=== PATIENT | male | born 1975 | race Two or more races ===

== ENCOUNTER 2020-08-25 07:06 | Inpatient (IN) | payer MEDICAID ==
[~2020-08-25 07:06] MED LIST: cefOXitin 2 GM Vial ONE
[2020-08-25] MEDS ORDERED: Dextrose 5%-Lactated Ringers 1,000 ML IV SCH (07:30)
[2020-08-25] MEDS ORDERED: cefOXitin 2 GM in Sodium Chloride 0.9% 50 ML IV ONE (07:30)
[2020-08-25] MEDS ORDERED: Acetaminophen 500 MG Tab PO ONE (07:30)
[2020-08-25] MEDS ORDERED: Scopolamine 1.5 MG Transdermal Patch TOP SCH (07:30)
[2020-08-25] MEDS ORDERED: Celecoxib 200 MG Cap PO SCH (07:30)
[2020-08-25] MEDS ORDERED: Ondansetron 4 MG/2 ML SDV ONE (08:49)
[2020-08-25] MEDS ORDERED: Propofol 200 MG/20 ML SDV ONE (08:49)
[2020-08-25] MEDS ORDERED: Dexamethasone 4 MG/ML SDV ONE (08:49)
[2020-08-25] MEDS ORDERED: Midazolam 1 MG/ML 2 ML SDV ONE (08:49)
[2020-08-25] MEDS ORDERED: Glycopyrrolate 0.2 MG/ML 5 ML MDV ONE (08:49)
[2020-08-25] MEDS ORDERED: Lactated Ringers 1,000 ML ONE (08:49)
[2020-08-25] MEDS ORDERED: fentaNYL 250 MCG/5 ML SDV ONE (08:49)
[2020-08-25] MEDS ORDERED: Succinylcholine 200 MG/10 ML MDV ONE (08:49)
[2020-08-25] MEDS ORDERED: Rocuronium 50 MG/5 ML Vial ONE (08:49)
[2020-08-25] MEDS ORDERED: Neostigmine Methylsulfate 1 MG/ML 5 ML Syringe ONE (08:49)
[2020-08-25] MEDS ORDERED: Ketamine 500 MG/5 ML MDV IV SCH (09:30)
[2020-08-25] MEDS ORDERED: Magnesium Sulfate 3 GM in Sodium Chloride 0.9% 100 ML IV SCH (09:30)
[2020-08-25] MEDS ORDERED: Ketamine 50 MG in Sodium Chloride 0.9% 49.5 ML IV SCH (09:30)
[2020-08-25] MEDS ORDERED: SODIUM CHLORIDE 0.9% IV ONE (10:00)
[2020-08-25] MEDS ORDERED: MAGNESIUM SULFATE IV ONE (10:00)
[2020-08-25] MEDS ORDERED: hydrOXYzine HCL 100 MG/2 ML SDV IM ONE (12:30)
[2020-08-25] MEDS ORDERED: Cyclobenzaprine 10 MG Tab PO PRN (12:59)
[2020-08-25] MEDS ORDERED: Ondansetron 4 MG/2 ML SDV IVPUSH PRN (13:00)
[2020-08-25] MEDS ORDERED: diphenhydrAMINE 50 MG/ML SDV IVPUSH PRN (13:00)
[2020-08-25] MEDS ORDERED: Acetaminophen 500 MG Tab PO PRN (13:00)
[2020-08-25] MEDS ORDERED: hydrOXYzine HCL 100 MG/2 ML SDV IM PRN (13:00)
[2020-08-25] MEDS ORDERED: HYDROmorphone 0.5 MG/0.5 ML Syringe IVPUSH PRN (13:00)
[2020-08-25] MEDS ORDERED: HYDROmorphone 1 MG/ML Syringe IV PRN (13:00)
[2020-08-25] MEDS ORDERED: Metoclopramide 10 MG/2 ML SDV IVPUSH PRN (13:00)
[2020-08-25] MEDS ORDERED: Calcium Gluconate 10% 1 GM/10 ML SDV IVPUSH PRN (13:00)
[2020-08-25] MEDS ORDERED: Labetalol 20 MG/4 ML Syringe IVPUSH PRN (13:00)
[2020-08-25] MEDS ORDERED: oxyCODONE 5 MG Tab PO PRN (13:00)
[2020-08-25] MEDS: Dextrose 5%-Lactated Ringers 1,000 ML IV SCH ×2 (13:03→23:29)
[2020-08-25] MEDS ORDERED: MVI, Adult with Vitamin K 10 ML, Thiamine 200 MG, Zinc/Copper/Manganese/Selenium 1 ML i... IV SCH ×4 (16:00)
[2020-08-25] MEDS ORDERED: Pantoprazole 40 MG Vial IVPUSH SCH (16:00)
[2020-08-25] MEDS: cefOXitin 2 GM in Sodium Chloride 0.9% 50 ML IV SCH ×2 (16:02→22:24)
[2020-08-25] MEDS: Acetaminophen 500 MG Tab PO SCH ×2 (16:05→23:28)
--- NOTE | 2020-08-25 16:09 | PCM.EKG ---
#1 Interpretation EKG Date: 08/25/20 Time: 07:37 Rhythm: NSR Rate (Beats/Min): 52 [place]: Normal P-Wave: Present QRS: Wide (NSIVCD) ST-T: Normal QT: Normal MA/PQ Interval: normal Comparison: NA - No Prior EKG
[2020-08-25] MEDS: traMADol 50 MG Tab PO PRN (16:16)
[2020-08-25] MEDS: Heparin Sodium 5,000 Units/ML Vial SUBCUT SCH (19:53)
[2020-08-26] MEDS ORDERED: Iopamidol 612 MG/ML 50 ML SDV PO STA (04:17)
[2020-08-26] MEDS: cefOXitin 2 GM in Sodium Chloride 0.9% 50 ML IV SCH ×3 (04:18→16:21)
[2020-08-26] MEDS: Dextrose 5%-Lactated Ringers 1,000 ML IV SCH (05:41)
[2020-08-26] MEDS ORDERED: Ondansetron 4 MG Tab.DIS PO PRN (06:39)
[2020-08-26] MEDS ORDERED: hydrOXYzine HCl 25 MG Tab PO PRN (06:40)
[2020-08-26] MEDS ORDERED: Dextrose 5%-Lactated Ringers 1,000 ML IV SCH (06:45)
--- NOTE | 2020-08-26 07:13 | PN ---
DATE OF SERVICE: 08/26/2020 SUBJECTIVE: Ozzie is postop day #1 following a sleeve gastrectomy. His upper GI was normal. Vital signs have been stable. Oral intake 960. Urine output 2300. ALEC drain put out 130 mL of a light red drainage. Pain has been controlled per energy protocol. Up, ambulating in the prince. Has no questions or concerns. OBJECTIVE: GENERAL: Ozzie is a pleasant 45-year-old male. He is alert and orientated. VITAL SIGNS: TPR 94.4, 59, 18, blood pressure 109/60. HEENT: Negative. NECK: Supple. HEART: Regular rate and rhythm. LUNGS: Clear. ABDOMEN: Dressings dry and intact. ALEC drain as above. Abdominal binder is on. EXTREMITIES: Without peripheral edema. ASSESSMENT: 1. Laparoscopic sleeve gastrectomy. 2. Liver biopsy. 3. Diaphragmatic hernia repair. 4. Excision of mediastinal lipoma. POSTOPERATIVE DIAGNOSES: 1. Morbid obesity. 2. Hepatomegaly. 3. Diaphragmatic hernia. 4. Mediastinal lipoma. 5. Date of procedure: 08/25/2020. Surgeon: Lucius Perez MD. PLAN: 1. Decrease IV to 100 mL per hour. 2. Step 2 gastric bypass diet without cereal. 3. Discontinue IV Dilaudid. 4. Dressing off, may shower. 5. Discontinue cardiac monitoring and continuous pulse ox. 6. Zofran 4 mg ODT q.4 hours p.r.n. nausea. 7. Atarax 25 mg q.4 hours p.r.n. pain. 8. Communication order: 3 med cups per hour, 1 every 20 minutes, record at bedside. 9. Continue ambulation and use of incentive spirometer. 10.We will evaluate p.r.n. or in a.m. Danika Hare PA-C /[id number]
[2020-08-26] MEDS: Heparin Sodium 5,000 Units/ML Vial SUBCUT SCH ×2 (07:31→20:16)
[2020-08-26] MEDS: traMADol 50 MG Tab PO PRN ×2 (07:32→14:08)
[2020-08-26] MEDS: Acetaminophen 500 MG Tab PO SCH ×2 (07:33→16:21)
[2020-08-26] MEDS: Celecoxib 200 MG Cap PO SCH ×2 (09:05→20:16)
[2020-08-26] MEDS: SCOPOLAMINE PATCH CHECK TOP SCH (09:05)
[2020-08-26] MEDS ORDERED: Pantoprazole 40 MG Delayed-Release Granules 1 Packet PO SCH (16:00)
[2020-08-26] MEDS ORDERED: MVI, Adult with Vitamin K 10 ML, Thiamine 200 MG, Zinc/Copper/Manganese/Selenium 1 ML i... IV SCH ×4 (16:00)
[2020-08-27] MEDS: Acetaminophen 500 MG Tab PO SCH ×2 (00:17→08:10)
[2020-08-27] MEDS ORDERED: Magnesium Hydroxide 400 MG/5 ML Susp 30 ML Cup PO PRN (06:47)
[2020-08-27] MEDS: Heparin Sodium 5,000 Units/ML Vial SUBCUT SCH (08:10)
[2020-08-27] MEDS: traMADol 50 MG Tab PO PRN (08:10)
[2020-08-27] MEDS: Celecoxib 200 MG Cap PO SCH (08:10)
[2020-08-27] MEDS ORDERED: Magnesium Hydroxide 400 MG/5 ML Susp 30 ML Cup PO ONE (09:00)
[2020-08-27] MEDS ORDERED: Cyanocobalamin (Vitamin B12) 1,000 MCG/ML SDV IM ONE (09:00)
[2020-08-27] MEDS: SCOPOLAMINE PATCH CHECK TOP SCH (09:28)
--- NOTE | 2020-08-28 09:02 | DISCH ---
ADMISSION DIAGNOSES: 1. Morbid obesity. 2. Mixed hyperlipidemia. DISCHARGE DIAGNOSES: 1. Laparoscopic sleeve gastrectomy. 2. Liver biopsy. 3. Diaphragmatic hernia. 4. Excision of mediastinal lipoma. POSTOPERATIVE DIAGNOSES: 1. Morbid obesity. 2. Hepatomegaly. 3. Diaphragmatic hernia. 4. Mediastinal lipoma. 5. Date of procedure: 08/25/2020. Surgeon: Lucius Perez MD. HISTORY: Ozzie is a 45-year-old male with longstanding history of morbid obesity and increasing comorbidities. After preoperative evaluation and discussion of possible risks and possible complications, he wished to proceed with surgical procedure. HOSPITAL COURSE: Ozzie had his surgery on 08/25/2020. He had no operative complications. On postoperative day #1, his upper GI was normal. He was started on a step 2 gastric bypass diet with no cereal. His activity was good. Oral intake adequate. Pain was controlled on energy protocol and he was able to be discharged to home on postoperative day #2. PHYSICAL EXAMINATION: GENERAL: Ozzie is a pleasant 45-year-old male. VITAL SIGNS: Height 5 feet 4 inches, weight is 257 pounds. TPR 95, 53, 18, blood pressure 90/59. HEENT: Negative. NECK: Supple. HEART: Regular rate and rhythm. LUNGS: Clear. ABDOMEN: Incisions look good. Healing well. 4 x 4 will be placed over trocar site when ALEC drain is out. Abdominal binder is on. EXTREMITIES: Without peripheral edema. DISPOSITION: Discharged to home. CONDITION: Stable and improving. FOLLOWUP APPOINTMENT: 09/05/2020 at 10 a.m. with Danika Hare PA-C at [facility]. HOME MEDICATIONS: 1. Celebrex 200 mg p.o. b.i.d. #28. 2. Zofran ODT 4 mg sublingual q.4 hours p.r.n. nausea, #30. 3. Milk of Magnesia 30 mL to take 1 daily for constipation and 2 doses were sent home. 4. Resume home medication of Lipitor 40 mg p.o. at bedtime. DIET: Step 2 gastric bypass diet with no cereal until 09/24/2020, total 1 month. 65 g of protein and drink 8 to 10 glasses of water a day. ACTIVITY: No lifting greater than 10 pounds for 2 weeks. OTHER ACTIVITY: Walk 6 times daily inside your home. Driving: Do not drive for 1 week. DISCHARGE INSTRUCTIONS: Shower/bathing: May shower. Keep operative site clean and dry. Wear abdominal binder for 2 weeks and then as tolerated. Notify provider if any fever, increased pain, swelling, redness, drainage, nausea, or vomiting. Use incentive spirometer 10 times every hour while awake for 1 week. /[id number]
--- NOTE | 2020-08-28 09:33 | CR ---
[facility] HISTORY: Postbariatric surgery FINDINGS: Patient swallowed water-soluble contrast. Upright views of the abdomen show no evidence of extravasation or obstruction. There is a surgical drain in the left upper quadrant IMPRESSION: Status post bariatric surgery No extravasation or obstruction seen
--- NOTE | 2020-08-30 10:47 | OR ---
DATE OF PROCEDURE: 08/25/2020 SURGEON: Lucius Perez MD PREOPERATIVE DIAGNOSIS: Morbid obesity. POSTOPERATIVE DIAGNOSES: 1. Morbid obesity. 2. Marked hepatomegaly. 3. Paraesophageal diaphragmatic hernia. 4. Mediastinal lipoma. OPERATIVE PROCEDURES: 1. Laparoscopic sleeve gastrectomy (29629). 2. Hammad-Cut needle liver biopsy (59945). 3. Repair of paraesophageal diaphragmatic hernia (41550). 4. Excision of mediastinal lipoma (99249). ANESTHESIA: General. SENIOR ACCOUNTANT CPA: Danika Hare PA-C INDICATIONS FOR PROCEDURE: This is a 45-year-old male, presenting with longstanding morbid obesity, increasingly significant comorbidities. After preoperative evaluation and discussion, he wished to proceed with a laparoscopic sleeve gastrectomy. Potential risks of the procedure including bleeding, infection, leaks from staple line, as well as possibility of cardiopulmonary, septic, or hemorrhagic complications leading to , and the patient wishes to proceed. DETAILS OF PROCEDURE: The patient was taken to the operating room and placed in a supine position. After general endotracheal anesthesia was induced, he was converted to a lithotomy position and the abdomen prepped and draped. 15 cm inferior and 5 cm left of the xiphoid process, a transverse incision was made and the peritoneal cavity entered under direct vision with an Optiview trocar inflated to 15 mmHg pressure with CO2. Laparoscope was then reinserted. No underlying trocar insertion site injuries were seen. Following this, 5 additional trocars were placed across the upper and mid abdomen, and bilateral transversus abdominis plane blocks were then placed. The liver was noted to be markedly and fatty infiltrated and enlarged. Hammad-Cut needle biopsies were obtained from left lobe of the liver. Minimal bleeding from the biopsy sites was controlled with electrocautery. At this point, the liver was retracted anteriorly. The patient was noted to have a moderate- sized paraesophageal diaphragmatic hernia with prolapse of some perigastric fat and gastric fundus, and omentum in a plane anterior to the course of the esophagus. This was reduced and peritoneum overlying incised and reflected downward. The crural dissection revealed a mediastinal lipoma which was excised to facilitate more adequate closure of the crura, which was then accomplished with 0 Ethibond sutures reinforced with PTFE pledgets. At this point, the pylorus was identified. Beginning 2 cm proximal to the pylorus, the omentum was then divided off the greater curvature of the stomach, from that point upward through the short gastric vessels including the highest and posterior short gastric vessels. The dissection of the gastric fundus away from the left neetu was then completed. At this point, the initial staple line was marked out with electrocautery in the anterior aspect of the antrum and then extending onto the area inferior to the incisura angularis to avoid overtightening of that area. First 3 firings of the staple line were done with reinforced black loads. Following this, then a 32-Mongolian suction tube was placed along the edge of the lesser curvature that had been placed orally per Anesthesia and this was then placed on suction. Remainder of the sleeve gastrectomy was then accomplished with a series of reinforced black and purple loads and the gastric specimen was then placed off to the side. The staple lines were inspected. The entire staple line was reinforced with fibrin sealant focusing particularly in the area of esophagogastric junction. Omentum was then pulled up along the edges of the remaining stomach, which adhered to due to the fibrin sealant. A leak test was then accomplished with now injection of air into the gastric tube. This became distended and while being submerged with antibiotic-containing saline solution, no leaks or bleeding were seen. The gastric specimen was delivered through the left lateral trocar site, through which also then a Davon-Sunshine drain was placed along the area of esophagogastric junction, from there up into the splenic fossa. The trocars were then sequentially removed and the peritoneal cavity deflated. The incision was closed with some 4-0 Vicryl skin stitch and the drain affixed with 4-0 Vicryl stitch as well. The patient was taken to the recovery room in satisfactory condition. Physician botany laboratory assistant, Danika Hare, played an essential role in assisting in this case, helping to position the patient, retract structures as needed, as well as suturing and cutting sutures when indicated. Her presence improved patient safety and decreased the operative time. Lucius Perez MD /[id number]
== END 2020-08-27 08:45 | disposition home or self-care (01) | DRG 621 ==
LOC: JP.SDS 07:06 → JP.SDSSCHI 07:10 → EDSTATUS 09:45 → JP.MS 11:50
PROVIDERS: ADMIT Surgery; ATTEND Surgery
PROC: 0DB64Z3 Excision of Stomach, Percutaneous Endoscopic Approach, Vertical (ICD-10-PCS; principal; 2020-08-25)
PROC: 0FB24ZX Excision of Left Lobe Liver, Percutaneous Endoscopic Approach, Diagnostic (ICD-10-PCS; 2020-08-25)
PROC: 0BQT4ZZ Repair Diaphragm, Percutaneous Endoscopic Approach (ICD-10-PCS; 2020-08-25)
PROC: 0JB63ZZ Excision of Chest Subcutaneous Tissue and Fascia, Percutaneous Approach (ICD-10-PCS; 2020-08-25)
DX: E66.01 Morbid (severe) obesity due to excess calories (principal); E78.2 Mixed hyperlipidemia; R16.0 Hepatomegaly, not elsewhere classified; K44.9 Diaphragmatic hernia without obstruction or gangrene; D17.4 Benign lipomatous neoplasm of intrathoracic organs; F17.210 Nicotine dependence, cigarettes, uncomplicated
CPT/HCPCS: 36415; 74240; 74240-26; 80053; 83735; 85027; 86850; 86900; 86901; 88304; 88307; 88313; 93005; 94762; A9270-GY; C9113; J0171; J0330; J0694; J1100; J1170; J1644; J2250; J2405; J2704; J2710; J2795; J3010; J3410; J3411; J3420; J3475; J3490; J7050; J7120; J7121